=== PATIENT | female | born 1980 | race Caucasian/White ===

== ENCOUNTER 2016-12-03 07:52 | Emergency (ER) | payer OTHER ==
[2016-12-03] MEDS ORDERED: NORMAL SALINE 1,000 ML IV ONE (08:25)
[2016-12-03 08:38] LABS: Hematocrit 33.7 % (37.0-47.0); Hemoglobin 11.4 gm/dL (12.5-16.0); Mean Cell Volume 96.3 fl (78-100); Mean Corpuscular Hemoglobin 32.6 pg (27-31); Mean Corpuscular Hgb Conc 33.8 g/dl (32-36); Mean Platelet Volume 11.5 fl (6.0-9.5); Neutrophil % 56.9 % (42-75.0); Platelet Count 149 K/mm3 (150-450); Red Cell Distribution Width 13.2 % (11.5-14.0)
--- NOTE | 2016-12-03 08:38 | ERNOTE ---
Psychological HPI - Date Date of Service: 12/03/16 - General Chief Complaint: Drug Overdose Source: Reports: patient Exam Limitations: Reports: no limitations - Immun/Allergies/Home Medications Allergies/Adverse Reactions: Allergies cefuroxime axetil [From Ceftin] Allergy (Intermediate, Verified 12/03/16 08:14) Hives avalox Allergy (Intermediate, Uncoded 12/03/16 08:14) Hives Home Medications: HOME MEDICATIONS Clomipramine HCl 50 mg PO DAILY 04/13/13 [Last Taken Unknown] FLUoxetine HCL [Prozac] 60 mg PO DAILY 04/13/13 [Last Taken Unknown] Diazepam [Valium] 10 mg PO DAILY 12/03/16 [Last Taken Unknown] - History of Present Illness Narrative: 36 yo WF who took 6 hydrocodone and two ativan pills just prior to arrival. Had been drinking during the night. Says her life has hit rock bottom and she had nothing to live for. Took the pills hoping to kill herself. Had one other episode of trying to commit suicide by taking pills but her found her and forced her to spit them out. Currently but from her . Lives with her three children and her dad stays with them. Time Seen by Provider: 12/03/16 08:23 Review of Systems - Review of Systems Constitutional: Present: no symptoms reported ENT: Present: no symptoms reported Respiratory: Present: no symptoms reported Cardiology: Present: no symptoms reported Gastrointestinal/Abdominal: Present: no symptoms reported Musculoskeletal: Present: no symptoms reported - Patient's Past Medical History Patient History - Medical: Anxiety Patient History - Cardiac/Respiratory: No pertinent hx Patient History - Cancer: No Hx of Cancer Patient History - Surgical Procedures: Appendectomy, Cholecystectomy, , Tubal Ligation, Hernia Repair Patient History - Other: None LMP (females 10-50): tubal ligation - Social History Living Situations: home Psych History: Hx of Anxiety, Hx of Depression, Current tx/ever been on anti- depressants or anti-anxiety meds Smoking Status: Current every day smoker Alcohol Use: heavy Drug Use: benzodiazepine - Immunizations Immunizations Up to Date: Yes Hx Pneumococcal Vaccination: Yes History of Influenza Vaccine: Yes Psychological Exam - Exam General Appearance: Present: wd/wn, alert, no apparent distress, other - flat affect Head Exam: Present: normal inspection, no evidence of injury Neurological: Present: alert, correspondence renew clerk II-XII nml as tested, oriented x 3 Thoughts/Hallucinations: Present: normal thought pattern, no apparent hallucination Behavior/Eye Contact/Speech: Present: cooperative, good eye contact, normal speech Eye Exam: Normal inspection: bilateral, PERRL: bilateral, EOMI: bilateral Ears, Nose, Throat: Present: normal ENT inspection Neck: Present: normal inspection, nontender Respiratory: Present: no respiratory distress, normal breath sounds Cardiovascular/Chest: Present: regular rate, rhythm, no murmur Gastrointestinal/Abdominal: Present: nontender, soft Extremity Exam: Present: normal inspection, non-tender Skin Exam: Present: normal color, warm/dry ED Progress - Date and Time Seen: Date and Time: 12/03/16 19:25 Feels tired. Sleeping most of the time. No real complaints and has been very cooperative. Awaiting placement. 12/04/16 08:45 Patient very alert. Now wants to go home. Detailed our responsibility to protect her when she threatens her life. We agreed that [facility] will reassess and if they agree she can go home with outpatient therapy. 12/04/16 10:41 [facility] has cleared the patient to go home and follow up as outpatient. - Results and Orders Patient's Lab Results:: I have reviewed the patient's lab results. - Vital Signs Patient's Vital Signs:: I have reviewed the patient's vital signs. Vital Signs: Vital Signs 12/03/16 07:55 Temperature 36.6 C Pulse Rate 94 Respiratory 14 Rate Blood Pressure 133/73 O2 Sat by Pulse 99 Oximetry - Progress/Reassessment Chief Complaint: Drug Overdose Progress Note-Subjective: 12/03/16 10:53 Remains cooperative and compliant. Awaiting facility acceptance. - Transfer of Care Physician Sign Out: Eladio Wilkinson Brief History: Took pills as suicide attempt. Feels very hopeless. Has been cooperative and sleeping most of the time. Receiving Physician: Seble Gonzáles Plan - Plan Plan: Follow up with [facility] as directed. Departure Clinical Impression: Suicide gesture - Departure Disposition: Home self-care Condition: Good Instructions: Panic Attacks, [id number] Additional Instructions: Follow up with [facility] as scheduled. Return to ED if anxiety, depression, hopeless feelings re-occurr Referrals: Rickey Tolliver MD [Primary Care Provider] -
[2016-12-03 08:52] LABS: Acetaminophen * 14.1 mcg/mL (10.0-30.0); Albumin * 3.8 gm/dl (3.4-5.0); Anion Gap 15.2 mmol/L (6.8-13.8); BUN/Creatinine Ratio 11.9 (9.0-21.6); Bilirubin, Total 0.2 mg/dL (0.0-1.1); Ca. Corrected For Albumin 8.3 mg/dL (8.4-10.2); Calcium * 8.5 mg/dL (7.9-10.9); Carbon Dioxide 27.4 mmol/L (24-32.6); Potassium 3.6 mmol/L (3.4-4.6); Salicylate 5.3 mg/dL (2.8-20.0); Total Protein 7.1 gm/dL (6.2-8.2)
[2016-12-03 08:58] LABS: Urine Bilirubin Negative (NEGATIVE); Urine Blood Negative /ul (NEGATIVE); Urine Ketone Negative (NEGATIVE); Urine Nitrite Negative (NEGATIVE); Urine Protein Negative (NEGATIVE); Urine Specific Gravity <=1.005 SP.GR. (1.005-1.010); Urine Urobilinogen Normal (NORMAL); Urine pH 6.5 pH (5.0-7.0)
[2016-12-03 09:05] LABS: Cocaine Ur Negative (NEGATIVE); Urine Barbiturate Negative (NEGATIVE); Urine Benzodiazepines Negative (NEGATIVE); Urine PCP Negative (NEGATIVE); Urine THC Negative (NEGATIVE)
[2016-12-03 09:06] LABS: Urine Opiates Positive (NEGATIVE)
[2016-12-03 09:18] LABS: Urine Appearance Clear; Urine Color Yellow; Urine WBC TRACE /hpf (0-5)
[2016-12-03 09:19] LABS: Urine Bacteria None Seen; Urine RBC None Seen /hpf (0-5)
[2016-12-03] MEDS ORDERED: NORMAL SALINE 1,000 ML IV PRN (09:50)
[2016-12-03 12:25] LABS: Prothrombin Time (Patient) 10.7 Seconds (9.4-11.4)
[2016-12-03 12:28] LABS: INR 1.03 INR (0.90-1.10)
[2016-12-03 12:37] LABS: Acetaminophen * 6.1 mcg/mL (10.0-30.0); TSH * 1.57 uIU/mL (0.358-3.74)
--- NOTE | 2016-12-03 21:59 | ERNOTE ---
Psychological HPI - General Chief Complaint: Drug Overdose Source: Reports: patient, EMR, RN notes reviewed - Immun/Allergies/Home Medications Allergies/Adverse Reactions: Allergies cefuroxime axetil [From Ceftin] Allergy (Intermediate, Verified 12/03/16 08:14) Hives avalox Allergy (Intermediate, Uncoded 12/03/16 08:14) Hives Home Medications: HOME MEDICATIONS Clomipramine HCl 50 mg PO DAILY 04/13/13 [Last Taken Unknown] FLUoxetine HCL [Prozac] 60 mg PO DAILY 04/13/13 [Last Taken Unknown] Diazepam [Valium] 10 mg PO DAILY 12/03/16 [Last Taken Unknown] - History of Present Illness Narrative: Patient states she wants to kill herself. She came in earlier in the day. [facility] was called during the day, however patient told them that she wanted to kill herself, now is waiting for a bed to be found. Time Seen by Provider: 12/03/16 08:23 Arrived by: Reports: private car Intent: Reports: suicide - Patient's Past Medical History Patient History - Medical: Anxiety Patient History - Cardiac/Respiratory: No pertinent hx Patient History - Cancer: No Hx of Cancer Patient History - Surgical Procedures: Appendectomy, Cholecystectomy, , Tubal Ligation, Hernia Repair Patient History - Other: None LMP (females 10-50): tubal ligation - Social History Living Situations: home Psych History: Hx of Anxiety, Hx of Depression, Current tx/ever been on anti- depressants or anti-anxiety meds Smoking Status: Current every day smoker Alcohol Use: heavy Drug Use: benzodiazepine - Immunizations Immunizations Up to Date: Yes Hx Pneumococcal Vaccination: Yes History of Influenza Vaccine: Yes ED Progress - Vital Signs Vital Signs: Vital Signs 12/03/16 16:15 Temperature 36.6 C Pulse Rate 82 Respiratory 18 Rate Blood Pressure 111/63 O2 Sat by Pulse 99 Oximetry - Progress/Reassessment Chief Complaint: Drug Overdose - Transfer of Care Physician Sign Out: Seble Gonzáles - transfer back while waiting for a bed for the patient. Receiving Physician: Eladio Wilkinson Departure Clinical Impression: Suicide gesture Qualifiers: Encounter type: initial encounter Qualified Code(s): X83.8XXA - Intentional self-harm by other specified means, initial encounter Depression Qualifiers: Depression Type: reactive depression Qualified Code(s): F32.9 - Major depressive disorder, single episode, unspecified - Departure Disposition: Home self-care Condition: Good Instructions: Panic Attacks, [id number] Additional Instructions: Follow up with [facility] as scheduled. Return to ED if anxiety, depression, hopeless feelings re-occurr Referrals: Rickey Tolliver MD [Primary Care Provider] -
[2016-12-03] MEDS ORDERED: DIAZEPAM 5 MG TABLET PO ONE (22:34)
[2016-12-03] MEDS ORDERED: DIAZEPAM 5 MG TABLET ONE (22:36)
[2016-12-03] MEDS ORDERED: NICOTINE 21 MG PATC TD ONE (22:36)
[2016-12-03] MEDS ORDERED: NICOTINE 21 MG PATC TD SCH (22:45)
[2016-12-04 11:05] VITALS: BP 141/75
== END 2016-12-04 10:50 | disposition home or self-care (01) ==
LOC: ER 07:52
DX: T14.91XA Suicide attempt, initial encounter (principal); T40.2X2A Poisoning by other opioids, intentional self-harm, initial encounter; T42.4X2A Poisoning by benzodiazepines, intentional self-harm, initial encounter; F41.9 Anxiety disorder, unspecified; F17.200 Nicotine dependence, unspecified, uncomplicated
CPT/HCPCS: 36415; 80053; 80307; 81001; 84443; 84450; 84460; 84703; 85025; 85610; 87077; 87086; 87186; 93005; 94760; 99284; G0480; G0481